=== PATIENT | male | born 1950 ===

== ENCOUNTER 2021-10-07 10:24 | Day surgery (SDC) | payer OTHER ==
[~2021-10-07] VITALS: Ht 177.8 cm; Wt 107.0 kg
[~2021-10-07 10:24] MED LIST: ATOR40TA PO; DULO60 PO; FINA5 PO; METF500 PO; PANT40 PO; PRINIVIL5 MG PO; TAMS.4ER PO
[2021-10-07] MEDS ORDERED: INSULANI SC (11:12)
[2021-10-07 11:35] LABS: BASOPHILS ABSOLUTE AUTO 0.06 K/mm3 (0.00-0.23); BASOPHILS PERCENT AUTO 1 % (0-2); EOSINOPHILS ABSOLUTE AUTO 0.16 K/mm3 (0.00-0.68); EOSINOPHILS PERCENT AUTO 2 % (0-6); Hematocrit 47.5 % (37.0-53.0); Hemoglobin 15.3 g/dL (13.5-17.5); IMMATURE GRAN ABSOLUTE AUTO 0.04 K/mm3 (0.00-0.10); IMMATURE GRAN PERCENT AUTO 1 % (0-1); LYMPHOCYTES ABSOLUTE AUTO 1.67 K/mm3 (0.84-5.20); LYMPHOCYTES PERCENT AUTO 25 % (21-46); MONOCYTES ABSOLUTE AUTO 0.45 K/mm3 (0.16-1.47); MONOCYTES PERCENT AUTO 7 % (4-13); Mean Corpuscular HGB 27.4 pg (26.0-34.0); Mean Corpuscular HGB Conc 32.2 g/dL (31.5-36.5); Mean Corpuscular Volume 85 fL (80-100); Mean Platelet Volume 9.4 fL (9.1-12.4); NEUTROPHILS ABSOLUTE AUTO 4.38 K/mm3 (1.96-9.15); NEUTROPHILS PERCENT AUTO 65 % (41-73); Platelet Count 229 K/mm3 (150-400); RDW Coefficient Variation 13.8 % (11.7-14.2); RDW Standard Deviation 42.7 fL (35.1-46.3); Red Blood Cell Count 5.59 M/mm3 (4.30-5.90); White Blood Cell Count 6.76 K/mm3 (4.00-11.30)
--- NOTE | 2021-10-07 11:39 | NUR ---
DR SWANSON IN ROOM TO SEE PT.
[2021-10-07 11:43] LABS: Bun/Creatinine Ratio 14.8 (12.0-20.0); Creatinine, Blood 1.28 mg/dL (0.60-1.20)
[2021-10-07 12:00] LABS: International Normalized Ratio 0.99; Prothrombin Time Results 10.4 Sec (9.7-11.5)
--- NOTE | 2021-10-07 17:42 | NUR ---
PT ARRIVED THIS AFTERNOON POST ANGIO WITHOUT INTERVENTION, VIA RT WRIST ACCESS. TR BAND HAS BEEN FULLY RECOVERED AT THE TIME OF THIS NOTE, TEGADERM APPLIED, NO ACTIVE BLEEDING, FULL ROM OF RT HAND, NO NUMBNESS OR TINGLING TO RT HAND. VSS. DENIES CP OR SOB. PLAN IS FOR DC TOMORROW. PT INDEPENDANT IN ROOM, UP TO BATHROOM WITH LITTLE NO ASSISTANCE. PT A/O X4.
--- NOTE | 2021-10-08 05:24 | NUR ---
SHIFT SUMMARY PT ALERT AND ORIENTED X 4. HR STABLE. BP STABLE. PT REPORTS TO WEAR CPAP T/O NIGHT. CPAP ORDERED. PT WORE CPAP T/O SHIFT WHILE SLEEPING. SEE RT NOTES FOR CPAP SETTINGS. NO CP OR PRESSURE REPORTED. R RADIAL SITE WNL. PULSE STRONG, NO HEMATOMA FORMATION. PT IND IN ROOM TO BATHROOM. PT REPORTS CHRONIC PAIN, MEDICATED PER EMAR. O2 SATURATION MAINTAINED ABOVE 94%. CALL LIGHT WITHIN REACH. WILL CONT TO MONITOR UNTIL REPORT GIVEN TO DAYSHIFT RN.
--- NOTE | 2021-10-08 14:17 | NUR ---
PT DISCHARGE TODAY WITH DISCHARGE ORDERS, RADIAL SITE CARE INSTRUCTIONS DISCLOSED WITH THE PT, NO NEW MEDICATION AT THIS TIME. PT TO FOLLOW UP WITHIN ONE MONTH AT THE [facility] PT TO SEE [facility], PT STATED HE HAS APPT COMING UP October. RIGHT RADIAL SITE REMAINED CLEAN DRY AND INTACT, NO REDNESS NOTED. PT DENIES ANY CHEST PAIN/PRESSURE, REPROTED NECK AND JAW PAIN FROM CPAP MASK 2/10 MEDICATED WITH TYLENOL AND WAS EFFECTIVE, VITALS HAS BEEN STABLE. PT TO DRIVE HIMSELF HOME. ALL BELONGINGS SENT WITH THE PT ACCOMPANIED BY PCT UPON DISCHARGE.
== END 2021-10-08 13:20 | disposition home or self-care (01) ==
LOC: MHTC 10:24 → PCU 12:58 → MHTC 10-08 13:20
PROVIDERS: Internal Medicine Cardiovascular Disease
DX: I25.10 Atherosclerotic heart disease of native coronary artery without angina pectoris (principal); R07.9 Chest pain, unspecified; M79.602 Pain in left arm; I10 Essential (primary) hypertension; E11.9 Type 2 diabetes mellitus without complications; E78.5 Hyperlipidemia, unspecified; K21.9 Gastro-esophageal reflux disease without esophagitis; G47.33 Obstructive sleep apnea (adult) (pediatric); Z87.891 Personal history of nicotine dependence; Z88.8 Allergy status to other drugs, medicaments and biological substances; Z79.899 Other long term (current) drug therapy
CPT/HCPCS: 76937; 80048; 82947; 85025; 85610; 93454; 93571; 93572; 94660; 94762; 99152; 99153; A9270; C1769; C1887; C1894; J1644; J1815; J2250; J3010; J7030; J7040; Q9967